=== PATIENT | male | born 1970 | race Caucasian/White ===

== ENCOUNTER 2017-10-29 17:23 | Emergency (ER) | payer OTHER ==
[~2017-10-29] VITALS: Ht 182.9 cm; Wt 68.6 kg
[2017-10-29 17:26] VITALS: BP 131/70
== END 2017-10-29 18:34 | disposition left against medical advice (07) ==
LOC: EME 17:23
DX: F11.23 Opioid dependence with withdrawal (principal); F17.200 Nicotine dependence, unspecified, uncomplicated
CPT/HCPCS: 80048; 85027; G0480